=== PATIENT | female | born 1940 | race Caucasian/White ===

== ENCOUNTER 2016-12-05 15:54 | Emergency (ER) | payer OTHER ==
[2016-12-05 16:01] VITALS: BP 143/89; PULSE 72; TEMP 98; BMI 24.0
--- NOTE | 2016-12-05 16:25 | PDOC ---
History of Present Illness - History of Present Illness Initial Comments: 12/05/16 17:05 The patient is a 76 year old female, with a significant past medical history of hyperlipidemia, GERD, and osteoarthritis, who presents to the emergency department with constant chest pain, dizziness, and lightheadedness since 1PM today s/p endoscopy yesterday morning. The patient reports having an endoscopy yesterday morning at 8:30AM with Dr. Manzo for GERD evaluation. The patient states she reported mild chest discomfort to the anesthesiologist prior to her procedure and reports being given antacids prior to the procedure with relief of her symptoms. The patient states her chest pain ""feels like her GERD symptoms."" The patient localizes her pain to her midsternal region and denies radiation of pain. She states she developed a lightheadedness shortly after her onset of chest pain when she went for a walk outside. She describes her lightheadedness as walking side to side a short distance. The patient also states she developed an upper abdominal pain after eating a large amount of food after her her endoscopy yesterday, but denies abdominal pain today. The patient states she has a 4PM appointment with Dr. Juarez, wood gouger, tomorrow to discuss the findings from a recent physical. She denies shortness of breath, headache. She denies fever, chills, nausea, vomit, diarrhea and constipation. She denies dysuria, frequency, urgency and hematuria. Allergies: NKDA Past surgical history: bilateral total hip replacements Social history: Denies toxic habits PCP - Dr. Jhoan De La Torre ([place]) [facility] - Dr. Juarez <Noemí Oseguera - Last Filed: 12/05/16 21:15> <Venkata Sumner - Last Filed: 12/05/16 21:58> - General Chief Complaint: Chest Pain Stated Complaint: CHEST PAIN Time Seen by Provider: 12/05/16 16:23 Past History <Noemí Oseguera - Last Filed: 12/05/16 21:15> - Past Medical History Hypercholesterolemia: Yes - Psycho/Social/Smoking Cessation Hx Anxiety: No Suicidal Ideation: No Smoking History: Never smoked Have you smoked in the past 12 months: No Information on smoking cessation initiated: No Hx Alcohol Use: No Drug/Substance Use Hx: No Substance Use Type: None <Venkata Sumner - Last Filed: 12/05/16 21:58> - Past Medical History Allergies/Adverse Reactions: Allergies Allergy/AdvReac Type Severity Reaction Status Date / Time No Known Allergies Allergy Verified 12/05/16 15:56 Home Medications: Ambulatory Orders Aspirin [Ecotrin] 81 mg PO DAILY 12/05/16 Carvedilol [Coreg -] 12.5 mg PO DAILY 12/05/16 Bienville-3 Fatty Acids [Bienville-3] 1,000 mg PO DAILY 12/05/16 Risedronate Sodium 35 mg PO DAILY 12/05/16 Rosuvastatin Calcium [Crestor] 5 mg PO DAILY 12/05/16 Ubidecarenone [Co Q-10] 10 mg PO DAILY 12/05/16 Review of Systems - Review of Systems Able to Perform ROS?: Yes Comments:: 12/05/16 17:06 GENERAL/CONSTITUTIONAL: No fever or chills. No weakness. HEAD, EYES, EARS, NOSE AND THROAT: No change in vision. No ear pain or discharge. No sore throat. CARDIOVASCULAR: (+) midsternal chest pain and lightheadedness. No shortness of breath. RESPIRATORY: No cough, wheezing, or hemoptysis. GASTROINTESTINAL: No nausea, vomiting, diarrhea or constipation. GENITOURINARY: No dysuria, frequency, or change in urination. MUSCULOSKELETAL: No joint or muscle swelling or pain. No neck or back pain. SKIN: No rash NEUROLOGIC: (+)lightheadedness, No headache,loss of consciousness, or change in strength/sensation. ENDOCRINE: No increased thirst. No abnormal weight change. HEMATOLOGIC/LYMPHATIC: No anemia, easy bleeding, or history of blood clots. ALLERGIC/IMMUNOLOGIC: No hives or skin allergy. <Noemí Oseguera - Last Filed: 12/05/16 21:15> *Physical Exam - Vital Signs Last Vital Signs Temp Pulse Resp BP Pulse Ox 98 F 72 18 143/89 97 12/05/16 15:57 12/05/16 15:57 12/05/16 15:57 12/05/16 15:57 12/05/16 15:57 - Physical Exam Comments: 12/05/16 17:06 GENERAL: Awake, alert, and fully oriented, in no acute distress HEAD: No signs of trauma EYES: PERRLA, EOMI, sclera anicteric, conjunctiva clear ENT: Auricles normal inspection, hearing grossly normal, nares patent, oropharynx clear without exudates. Moist mucosa NECK: Normal ROM, supple, no lymphadenopathy, JVD, or masses LUNGS: Breath sounds equal, clear to auscultation bilaterally. No wheezes, and no crackles HEART: Regular rate and rhythm, normal S1 and S2, no murmurs, rubs or gallops ABDOMEN: (+)epigastric ttp, Soft, normoactive bowel sounds. No guarding, no rebound. No masses MUSCULOSKELETAL: (+) tenderness to palpation along the sternum EXTREMITIES: Normal range of motion, no edema. No clubbing or cyanosis. No cords, erythema, or tenderness NEUROLOGICAL: Normal speech, cranial nerves intact, negative pronator drift, 5/ 5 strength in all 4 extremities, normal sensation to light touch in all 4 extremities, normal cerebellar exam, normal gait, normal reflexes and tone SKIN: Warm, Dry, normal turgor, no rashes or lesions noted. <Noemí Oseguera - Last Filed: 12/05/16 21:15> - Vital Signs Last Vital Signs Temp Pulse Resp BP Pulse Ox 98 F 72 18 143/89 97 12/05/16 15:57 12/05/16 15:57 12/05/16 15:57 12/05/16 15:57 12/05/16 15:57 <Venkata Sumner - Last Filed: 12/05/16 21:58> Heart Score/ECG Review - History History: Slightly suspicious - Electrocardiogram EKG: Normal - Age Age: >/= 65 - Risk Factors Risk Factors Heart Score: Yes Hx Hypercholesterolemia Based on the list above the patient has:: 1-2 risk factors - Troponin Troponin: </= normal limit - Score Heart Score - Total: 3 #1 12/05/16 17:18 Twelve-lead EKG was performed and reviewed by me: Normal sinus rhythm, rate 68, normal axis, normal intervals, no ST elevations or T-wave inversions <Venakta Sumner - Last Filed: 12/05/16 21:58> ED Treatment Course - LABORATORY CBC & Chemistry Diagram: 12/05/16 16:45 12/05/16 16:45 - RADIOLOGY Radiograph Interpretation: 12/05/16 21:15 EXAM#: TYPE/EXAM: RESULT: [id number] RAD/CHEST PA LAT Clinical information: Chest pain. Chest x ray, PA and Lateral The cardiac silhouette is within normal limits in size with mild unfolding of the aortic arch and atherosclerotic calcification of its wall. There are mild bilateral increased lung markings without evidence of focal infiltrates. Mediastinum and visualized osseous structures appear grossly intact . Impression: Unremarkable examination without evidence of acute lung disease. Reported By: Yvonne Donald MD 12/05/162041 <Noemí Oseguera - Last Filed: 12/05/16 21:15> - LABORATORY CBC & Chemistry Diagram: 12/05/16 16:45 12/05/16 16:45 <Venkata Sumner - Last Filed: 12/05/16 21:58> Medical Decision Making - Medical Decision Making 12/05/16 17:19 76-year-old female history of hyperlipidemia presents with chest pain after endoscopy yesterday. Chest pain is burning in nature and has been constant since yesterday however became associated with lightheadedness today prompting her to call her GI doctors office who then referred her to the emergency department. Exam is unremarkable. EKG is nonischemic. Patient is low risk for ACS according to heart score (3). Will check 2 troponins to evaluate for ACS. Given recent endoscopy will also get an upright chest x-ray to evaluate for pneumoperitoneum although unlikely as the patient's exam is benign. Patient has appointment with wood gouger tomorrow. -labs -XR -IV pantoprazole -IVF -dispo 12/05/16 21:56 Laboratory 12/05/16 12/05/16 12/05/16 16:45 16:45 20:30 WBC 8.1 K/mm3 K/mm3 (4.0-10.0) RBC 4.22 M/mm3 M/mm3 (3.60-5.2) Hgb 12.9 GM/dL GM/dL (10.7-15.3) Hct 39.1 % % (32.4-45.2) MCV 92.7 fl fl (80-96) MCH 30.5 pg pg (25.7-33.7) MCHC 32.9 g/dl g/dl (32.0-36.0) RDW 13.6 % % (11.6-15.6) Plt Count 164 K/MM3 K/MM3 (134-434) MPV 8.8 fl fl (7.5-11.1) Neutrophils % 66.5 % % (42.8-82.8) Lymphocytes % 24.3 % % (8-40) Monocytes % 5.8 % % (3.8-10.2) Eosinophils % 2.8 % % (0-4.5) Basophils % 0.6 % % (0-2.0) Sodium 136 mmol/L mmol/L (136-145) Potassium 4.0 mmol/L mmol/L (3.5-5.1) Chloride 100 mmol/L mmol/L (98-107) Carbon Dioxide 28 mmol/L mmol/L (21-32) Anion Gap 8 (8-16) BUN 11 mg/dL mg/dL (7-18) Creatinine 0.6 mg/dL mg/dL (0.55-1.02) Creat Clearance w eGFR > 60 (>60) Random Glucose 106 mg/dL mg/dL (74-106) Calcium 9.0 mg/dL mg/dL (8.5-10.1) Total Bilirubin 0.6 mg/dL mg/dL (0.2-1.0) AST 33 U/L U/L (15-37) ALT 54 U/L U/L (12-78) Alkaline Phosphatase 55 U/L U/L (45-117) Troponin I < 0.02 ng/ml ng/ml < 0.02 ng/ml ng/ml (0.00-0.05) (0.00-0.05) Total Protein 7.8 g/dl g/dl (6.4-8.2) Albumin 3.8 g/dl g/dl (3.4-5.0) Lipase 177 U/L U/L (73-393) Labs including trop negative x2. Pt's symptoms resolved with pantoprazole. She has a cardiology appointment tomorrow and will follow up. I discussed the physical exam findings, ancillary test results and final diagnoses with the patient. I answered all of the patient's questions. The patient was satisfied with the care received and felt comfortable with the discharge plan and treatment plan. The patient will call their primary care physician within 24 hours to arrange follow-up and will return to the Emergency Department with any new, persistent or worsening symptoms. <Venkata Sumner - Last Filed: 12/05/16 21:58> *DC/Admit/Observation/Transfer - Attestations Scribe Attestion: 12/05/16 17:07 Documentation prepared by Noemí Oseguera, acting as medical appointment clerk for Venkata Sumner MD, MD <Noemí Oseguera - Last Filed: 12/05/16 21:15> - Discharge Dispostion Admit: No - Attestations Physician Attestion: 12/05/16 21:57 I, Dr. Venkata Sumner MD, attest that this document has been prepared under my direction and personally reviewed by me in its entirety. I further attest, that it accurately reflects all work, treatment, procedures and medical decision -making performed by me. <Venkata Sumner - Last Filed: 12/05/16 21:58> Diagnosis at time of Disposition: Chest pain Qualifiers: Chest pain type: unspecified Qualified Code(s): R07.9 - Chest pain, unspecified - Discharge Dispostion Disposition: HOME Condition at time of disposition: Stable - Referrals Referrals: STAFF,NOT ON [Primary Care Provider] - - Patient Instructions Printed Discharge Instructions: DI for Chest Pain Additional Instructions: Please follow up with your wood gouger tomorrow as scheduled. Take pantoprazole as prescribed by Dr. Gustafson. Follow up within your primary doctor within 1 week. Return to the emergency department immediately for any new or concerning symptoms or if your symptoms get worse
[2016-12-05] MEDS ORDERED: PANTOPRAZOLE SODIUM 40 MG in SODIUM CHLORIDE 100 ML IVPB ONE (16:47)
[2016-12-05] MEDS ORDERED: PANTOPRAZOLE SODIUM 100 ML IVPB ONE (16:54)
[2016-12-05] MEDS ORDERED: SODIUM CHLORIDE 0.9% 500 ML INFUS.BAG IV ONE (17:04)
[2016-12-05 17:06] LABS: BASOPHIL 0.6 % (0-2.0); EOSINOPHIL 2.8 % (0-4.5); MCH 30.5 pg (25.7-33.7); MCHC 32.9 g/dl (32.0-36.0); MEAN CELL VOLUME 92.7 fl (80-96); MEAN PLT VOLUME 8.8 fl (7.5-11.1); NEUTROPHILS 66.5 % (42.8-82.8); PLATELET COUNT 164 K/MM3 (134-434); RDW 13.6 % (11.6-15.6); WHITE BLOOD COUNT 8.1 K/mm3 (4.0-10.0)
[2016-12-05 17:52] LABS: ALBUMIN 3.8 g/dl (3.4-5.0); ANION GAP 8 (8-16); BILIRUBIN,TOTAL 0.6 mg/dL (0.2-1.0); CO2 28 mmol/L (21-32); CREATININE 0.6 mg/dL (0.55-1.02); GLUCOSE,RANDOM 106 mg/dL (74-106); SGOT/AST 33 U/L (15-37); SGPT/ALT 54 U/L (12-78); TOT PROT 7.8 g/dl (6.4-8.2)
[2016-12-05 17:56] LABS: ALK PHOS 55 U/L (45-117); TROPONIN I < 0.02 ng/ml (0.00-0.05)
--- NOTE | 2016-12-06 11:31 | EKG ---
Test Reason : Blood Pressure : / mmHG Vent. Rate : 068 BPM Atrial Rate : 068 BPM P-R Int : 188 ms QRS Dur : 084 ms QT Int : 412 ms P-R-T Axes : 048 051 059 degrees QTc Int : 438 ms NORMAL SINUS RHYTHM POSSIBLE LEFT ATRIAL ENLARGEMENT BORDERLINE ECG NO PREVIOUS ECGS AVAILABLE Confirmed by LUIS ALBERTO SCHMID, MAC ([id number]) on 12/06/2016 11:30:46 AM Referred By: Confirmed By:MAC SAHU MD
== END 2016-12-05 22:10 | disposition home or self-care (01) ==
LOC: JER 15:54
PROC: 3E033GC Introduction of Other Therapeutic Substance into Peripheral Vein, Percutaneous Approach (ICD-10-PCS; principal; 2016-12-05)
DX: R07.9 Chest pain, unspecified (principal); K21.9 Gastro-esophageal reflux disease without esophagitis; E78.00 Pure hypercholesterolemia, unspecified; M19.90 Unspecified osteoarthritis, unspecified site
CPT/HCPCS: 36415; 71020-TC; 80053; 83690; 84484; 85025; 93005; 93010; 96365; 99283-25